=== PATIENT | female | born 1985 | race Hispanic/Latino ===

== ENCOUNTER 2018-02-25 13:50 | Emergency (ER) | payer MEDICAID ==
[2018-02-25 14:15] VITALS: BP 123/73
[2018-02-25] MEDS ORDERED: TORADOL IM ONE (16:27)
--- NOTE | 2018-02-25 18:08 | XRay Report ---
FINAL REPORT PROCEDURE: Chest. TECHNIQUE: PA and lateral views. HISTORY: Fall, injury, chest pain. COMPARISON: No prior studies are available for comparison. FINDINGS: The heart and mediastinum appear normal. The lungs are clear and well expanded. There are no pleural effusions. The soft tissues and regional skeleton are unremarkable. IMPRESSION: Normal study.
--- NOTE | 2018-02-25 18:10 | XRay Report ---
FINAL REPORT PROCEDURE: Left tibia and fibula. TECHNIQUE: AP and lateral views. HISTORY: Fall, injury, leg pain. COMPARISON: None. FINDINGS: The bones appear intact without fracture or dislocation. The joint spaces appear normal. The soft tissues are unremarkable. IMPRESSION: Normal study.
--- NOTE | 2018-02-25 18:11 | XRay Report ---
FINAL REPORT PROCEDURE: Lumbar spine. TECHNIQUE: Three views. HISTORY: Fall, injury, back pain. COMPARISON: No prior studies are available for comparison. FINDINGS: The lumbar vertebrae have normal height and alignment. There are no fractures. There is no spondylolisthesis. There is mild disc space narrowing at L5-S1. The sacrum and sacroiliac joints appear normal. IMPRESSION: No significant abnormality.
--- NOTE | 2018-02-25 18:34 | Emergency Department Report ---
ED Extremity Problem HPI - General Chief complaint: Back Pain/Injury Stated complaint: BACK PAIN Time Seen by Provider: 02/25/18 16:15 Source: patient, EMS Mode of arrival: Wheelchair Limitations: Other - History of Present Illness Initial comments: Patient is a 32-year-old female with past medical history of chronic back pain is presenting status post a fall with scrapes to the right lower extremity. She states her anterior ohara is hurting secondary to a fall. Patient states pain is 10 out of 10 in severity. After making this complaint before was able to leave the room to put in orders for x-ray of the patient also stated that she was having intense back pain. She states this is worse than her normal back pain. She states that she also fell on her back. Patient is asking for oxycodone O which I told patient we were unable to give narcotics unless there was a fracture present. Patient then stated that she is having bilateral rib pain also 10 out of 10 in severity. Severity scale (0 -10): 9 - Related Data Previous Rx's Medication Instructions Recorded Last Taken Type Ketorolac [Toradol] 10 mg PO Q6H PRN #15 tablet 02/25/18 Unknown Rx methOCARBAMOL [Robaxin TAB] 500 mg PO Q6H PRN #15 tablet 02/25/18 Unknown Rx Allergies Allergy/AdvReac Type Severity Reaction Status Date / Time No Known Allergies Allergy Unverified 02/25/18 14:10 ED Review of Systems ROS: Stated complaint: BACK PAIN Other details as noted in HPI Comment: All other systems reviewed and negative ED Past Medical Hx - Past Medical History Previous Medical History?: Yes Additional medical history: fibromyalgia, DJD, Spinal stenosis, Back pain - Surgical History Past Surgical History?: Yes Hx Appendectomy: Yes Additional Surgical History: Left knee, appendectomy - Social History Smoking Status: Current Every Day Smoker Substance Use Type: Prescribed - Medications Home Medications: Home Medications Medication Instructions Recorded Confirmed Last Taken Type Ketorolac [Toradol] 10 mg PO Q6H PRN #15 tablet 02/25/18 Unknown Rx methOCARBAMOL [Robaxin TAB] 500 mg PO Q6H PRN #15 tablet 02/25/18 Unknown Rx ED Physical Exam - General Limitations: Other General appearance: alert, in no apparent distress - Head Head exam: Present: atraumatic, normocephalic - Eye Eye exam: Present: normal appearance - ENT ENT exam: Present: mucous membranes moist - Neck Neck exam: Present: normal inspection - Respiratory Respiratory exam: Present: normal lung sounds bilaterally. Absent: respiratory distress - Cardiovascular Cardiovascular Exam: Present: regular rate, normal rhythm. Absent: systolic murmur, diastolic murmur, rubs, gallop - GI/Abdominal GI/Abdominal exam: Present: soft, normal bowel sounds - Extremities Exam Extremities exam: Present: normal inspection, other (Z small superficial abrasion to the right anterior ohara) - Back Exam Back exam: Present: normal inspection - Neurological Exam Neurological exam: Present: alert, oriented X3 - Psychiatric Psychiatric exam: Present: normal affect, normal mood - Skin Skin exam: Present: warm, dry, intact, normal color. Absent: rash ED Course Vital Signs 02/25/18 14:10 Temperature 98.7 F Pulse Rate 95 H Respiratory 18 Rate Blood Pressure 123/73 O2 Sat by Pulse 97 Oximetry ED Medical Decision Making - Radiology Data X-ray of the right tib-fib was within normal limits. X-ray of the lumbar spine is within normal limits. X-ray of the chest 2 views within normal limits. Critical care attestation.: If time is entered above; I have spent that time in minutes in the direct care of this critically ill patient, excluding procedure time. ED Disposition Clinical Impression: Musculoskeletal pain Disposition: DC-01 TO HOME OR SELFCARE Is pt being admited?: No Does the pt Need Aspirin: No Condition: Stable Instructions: Musculoskeletal Pain (ED) Prescriptions: Ketorolac [Toradol] 10 mg PO Q6H PRN #15 tablet PRN Reason: Pain methOCARBAMOL [Robaxin TAB] 500 mg PO Q6H PRN #15 tablet PRN Reason: pain Referrals: PRIMARY CARE,MD [Primary Care Provider] - 3-5 Days
== END 2018-02-25 19:19 | disposition home or self-care (01) ==
LOC: ED 13:50
DX: M79.1 Myalgia (principal); F17.200 Nicotine dependence, unspecified, uncomplicated; Z90.49 Acquired absence of other specified parts of digestive tract; W19.XXXA Unspecified fall, initial encounter; Y93.89 Activity, other specified; Y99.8 Other external cause status; Y92.89 Other specified places as the place of occurrence of the external cause
CPT/HCPCS: 71046; 72100; 73590; 96372; 99283; J1885

== ENCOUNTER 2018-02-26 17:01 | Emergency (ER) | payer MEDICAID ==
--- NOTE | 2018-02-26 21:27 | Emergency Department Report ---
ED Psych HPI - General Chief Complaint: Psych Stated Complaint: SUICIDAL/MENTAL HEALTH Time Seen by Provider: 02/26/18 21:22 Source: patient, police Mode of arrival: Ambulatory - History of Present Illness Initial Comments: Ms Peguero is a 32 year-old woman with hx of depression, fibromylagia, epilepsy who presents with suicidal ideation. per patient, she wants to cut herself with a knife. She has tried to overdose before and has cut herself before. Was just discharged from psych facility on 02/24 and placed in skilled nursing. She does not like the skilled nursing. She thinks it is a "crack house." She wants to hurt herself because of a recent in [facility] family and her living situation. Did not take any drugs or drink any alcohol today. Did not cut herself, but is thinking about it. Was see in ED yesterday for back pain. Has chronic pain from fibromyalgia, otherwise no other complaints. Wants her PM dose of clonazepam. She reports she takes 2mg TID. MD Complaint: suicidal ideation Associated Psychiatric Symptoms: depression, suicidal ideation Quality: constant Improves With: none Worsens With: none Associated Symptoms: denies other symptoms Treatments Prior to Arrival: none If Self Harm: admits thoughts of, has plan - Related Data Previous Rx's Medication Instructions Recorded Last Taken Type Ketorolac [Toradol] 10 mg PO Q6H PRN #15 tablet 02/25/18 Unknown Rx methOCARBAMOL [Robaxin TAB] 500 mg PO Q6H PRN #15 tablet 02/25/18 Unknown Rx Allergies Allergy/AdvReac Type Severity Reaction Status Date / Time No Known Allergies Allergy Unverified 02/25/18 14:10 ED Review of Systems ROS: Stated complaint: SUICIDAL/MENTAL HEALTH Other details as noted in HPI Comment: All other systems reviewed and negative ED Past Medical Hx - Past Medical History Hx Seizures: Yes Hx Psychiatric Treatment: (Anxiety, PTSD, Depression) Additional medical history: fibromyalgia, DJD, Spinal stenosis, Back pain - Surgical History Hx Appendectomy: Yes Additional Surgical History: Left knee, appendectomy - Social History Smoking Status: Current Every Day Smoker - Medications Home Medications: Home Medications Medication Instructions Recorded Confirmed Last Taken Type Ketorolac [Toradol] 10 mg PO Q6H PRN #15 tablet 02/25/18 Unknown Rx methOCARBAMOL [Robaxin TAB] 500 mg PO Q6H PRN #15 tablet 02/25/18 Unknown Rx ED Physical Exam - General Limitations: No Limitations General appearance: alert, in no apparent distress - Head Head exam: Present: atraumatic, normocephalic - Eye Eye exam: Present: normal appearance, EOMI. Absent: nystagmus - ENT ENT exam: Present: normal exam, mucous membranes moist - Neck Neck exam: Present: normal inspection - Respiratory Respiratory exam: Present: normal lung sounds bilaterally. Absent: respiratory distress, wheezes, rales, rhonchi - Cardiovascular Cardiovascular Exam: Present: regular rate, normal rhythm. Absent: systolic murmur, diastolic murmur, rubs, gallop - GI/Abdominal GI/Abdominal exam: Present: soft. Absent: distended, tenderness - Extremities Exam Extremities exam: Present: normal inspection - Back Exam Back exam: Present: normal inspection - Neurological Exam Neurological exam: Present: alert, oriented X3, normal gait - Psychiatric Psychiatric exam: Present: normal affect, normal mood, suicidal ideation. Absent: homicidal ideation - Skin Skin exam: Present: warm, dry, intact, normal color. Absent: rash ED Course Vital Signs 02/26/18 02/26/18 17:30 21:58 Temperature 99.2 F 98.2 F Pulse Rate 112 H 84 Respiratory 18 17 Rate Blood Pressure 117/71 Blood Pressure 112/61 [Left] O2 Sat by Pulse 100 99 Oximetry ED Medical Decision Making - Lab Data Result diagrams: 02/26/18 21:39 02/26/18 21:39 Lab Results 02/26/18 02/26/18 02/26/18 Range/Units 21:39 21:39 21:39 WBC 9.7 (4.5-11.0) K/mm3 RBC 3.67 (3.65-5.03) M/mm3 Hgb 11.6 (10.1-14.3) gm/dl Hct 34.5 (30.3-42.9) % MCV 94 (79-97) fl MCH 32 (28-32) pg MCHC 34 (30-34) % RDW 13.4 (13.2-15.2) % Plt Count 255 (140-440) K/mm3 Lymph % (Auto) 26.3 (13.4-35.0) % [place] % (Auto) 9.5 H (0.0-7.3) % Eos % (Auto) 1.2 (0.0-4.3) % Baso % (Auto) 0.7 (0.0-1.8) % Lymph # 2.6 (1.2-5.4) K/mm3 [place] # 0.9 H (0.0-0.8) K/mm3 Eos # 0.1 (0.0-0.4) K/mm3 Baso # 0.1 (0.0-0.1) K/mm3 Seg Neutrophils % 62.3 (40.0-70.0) % Seg Neutrophils # 6.1 (1.8-7.7) K/mm3 Sodium 137 (137-145) mmol/L Potassium 3.8 (3.6-5.0) mmol/L Chloride 102.5 (98-107) mmol/L Carbon Dioxide 22 (22-30) mmol/L Anion Gap 16 mmol/L BUN 8 (7-17) mg/dL Creatinine 0.6 L (0.7-1.2) mg/dL Estimated GFR > 60 ml/min BUN/Creatinine Ratio 13 % Glucose 133 H (65-100) mg/dL Calcium 9.1 (8.4-10.2) mg/dL Total Bilirubin 0.20 (0.1-1.2) mg/dL AST 16 (5-40) units/L ALT 16 (7-56) units/L Alkaline Phosphatase 48 (35-129) units/L Total Protein 6.6 (6.3-8.2) g/dL Albumin 4.1 (3.9-5) g/dL Albumin/Globulin Ratio 1.6 % Urine Color (Yellow) Urine Turbidity (Clear) Urine pH (5.0-7.0) Ur Specific [place] (1.003-1.030) Urine Protein (Negative) mg/dL Urine Glucose (UA) (Negative) mg/dL Urine Ketones (Negative) mg/dL Urine Blood (Negative) Urine Nitrite (Negative) Ur Reducing Substances Urine Bilirubin (Negative) Urine Ictotest Urine Urobilinogen (<2.0) mg/dL Ur Leukocyte Esterase (Negative) Urine WBC (Auto) (0.0-6.0) /HPF Urine RBC (Auto) (0.0-6.0) /HPF U Epithel Cells (Auto) (0-13.0) /HPF Urine Bacteria (Auto) (Negative) /HPF Urine Mucus /HPF Urine HCG, Qual (Negative) Salicylates 0.3 L (2.8-20.0) mg/dL Urine Opiates Screen Urine Methadone Screen Acetaminophen (10.0-30.0) ug/mL Ur Barbiturates Screen Ur Phencyclidine Scrn Ur Amphetamines Screen U Benzodiazepines Scrn Urine Cocaine Screen U Marijuana (THC) Screen Drugs of Abuse Note Plasma/Serum Alcohol (0-0.07) % 02/26/18 02/26/18 02/27/18 Range/Units 21:39 21:39 03:30 WBC (4.5-11.0) K/mm3 RBC (3.65-5.03) M/mm3 Hgb (10.1-14.3) gm/dl Hct (30.3-42.9) % MCV (79-97) fl MCH (28-32) pg MCHC (30-34) % RDW (13.2-15.2) % Plt Count (140-440) K/mm3 Lymph % (Auto) (13.4-35.0) % [place] % (Auto) (0.0-7.3) % Eos % (Auto) (0.0-4.3) % Baso % (Auto) (0.0-1.8) % Lymph # (1.2-5.4) K/mm3 [place] # (0.0-0.8) K/mm3 Eos # (0.0-0.4) K/mm3 Baso # (0.0-0.1) K/mm3 Seg Neutrophils % (40.0-70.0) % Seg Neutrophils # (1.8-7.7) K/mm3 Sodium (137-145) mmol/L Potassium (3.6-5.0) mmol/L Chloride (98-107) mmol/L Carbon Dioxide (22-30) mmol/L Anion Gap mmol/L BUN (7-17) mg/dL Creatinine (0.7-1.2) mg/dL Estimated GFR ml/min BUN/Creatinine Ratio % Glucose (65-100) mg/dL Calcium (8.4-10.2) mg/dL Total Bilirubin (0.1-1.2) mg/dL AST (5-40) units/L ALT (7-56) units/L Alkaline Phosphatase (35-129) units/L Total Protein (6.3-8.2) g/dL Albumin (3.9-5) g/dL Albumin/Globulin Ratio % Urine Color Yellow (Yellow) Urine Turbidity Slightly cloudy (Clear) Urine pH 6.0 (5.0-7.0) Ur Specific [place] 1.008 (1.003-1.030) Urine Protein <15 mg/dl (Negative) mg/dL Urine Glucose (UA) Neg (Negative) mg/dL Urine Ketones Neg (Negative) mg/dL Urine Blood Lg (Negative) Urine Nitrite Neg (Negative) Ur Reducing Substances Not Reportable Urine Bilirubin Neg (Negative) Urine Ictotest Not Reportable Urine Urobilinogen < 2.0 (<2.0) mg/dL Ur Leukocyte Esterase Mod (Negative) Urine WBC (Auto) 20.0 H (0.0-6.0) /HPF Urine RBC (Auto) 49.0 (0.0-6.0) /HPF U Epithel Cells (Auto) 2.0 (0-13.0) /HPF Urine Bacteria (Auto) 2+ (Negative) /HPF Urine Mucus Few /HPF Urine HCG, Qual Negative (Negative) Salicylates (2.8-20.0) mg/dL Urine Opiates Screen Urine Methadone Screen Acetaminophen < 5.0 L (10.0-30.0) ug/mL Ur Barbiturates Screen Ur Phencyclidine Scrn Ur Amphetamines Screen U Benzodiazepines Scrn Urine Cocaine Screen U Marijuana (THC) Screen Drugs of Abuse Note Plasma/Serum Alcohol < 0.01 (0-0.07) % 02/27/18 Range/Units 03:30 WBC (4.5-11.0) K/mm3 RBC (3.65-5.03) M/mm3 Hgb (10.1-14.3) gm/dl Hct (30.3-42.9) % MCV (79-97) fl MCH (28-32) pg MCHC (30-34) % RDW (13.2-15.2) % Plt Count (140-440) K/mm3 Lymph % (Auto) (13.4-35.0) % [place] % (Auto) (0.0-7.3) % Eos % (Auto) (0.0-4.3) % Baso % (Auto) (0.0-1.8) % Lymph # (1.2-5.4) K/mm3 [place] # (0.0-0.8) K/mm3 Eos # (0.0-0.4) K/mm3 Baso # (0.0-0.1) K/mm3 Seg Neutrophils % (40.0-70.0) % Seg Neutrophils # (1.8-7.7) K/mm3 Sodium (137-145) mmol/L Potassium (3.6-5.0) mmol/L Chloride (98-107) mmol/L Carbon Dioxide (22-30) mmol/L Anion Gap mmol/L BUN (7-17) mg/dL Creatinine (0.7-1.2) mg/dL Estimated GFR ml/min BUN/Creatinine Ratio % Glucose (65-100) mg/dL Calcium (8.4-10.2) mg/dL Total Bilirubin (0.1-1.2) mg/dL AST (5-40) units/L ALT (7-56) units/L Alkaline Phosphatase (35-129) units/L Total Protein (6.3-8.2) g/dL Albumin (3.9-5) g/dL Albumin/Globulin Ratio % Urine Color (Yellow) Urine Turbidity (Clear) Urine pH (5.0-7.0) Ur Specific [place] (1.003-1.030) Urine Protein (Negative) mg/dL Urine Glucose (UA) (Negative) mg/dL Urine Ketones (Negative) mg/dL Urine Blood (Negative) Urine Nitrite (Negative) Ur Reducing Substances Urine Bilirubin (Negative) Urine Ictotest Urine Urobilinogen (<2.0) mg/dL Ur Leukocyte Esterase (Negative) Urine WBC (Auto) (0.0-6.0) /HPF Urine RBC (Auto) (0.0-6.0) /HPF U Epithel Cells (Auto) (0-13.0) /HPF Urine Bacteria (Auto) (Negative) /HPF Urine Mucus /HPF Urine HCG, Qual (Negative) Salicylates (2.8-20.0) mg/dL Urine Opiates Screen Presumptive negative Urine Methadone Screen Presumptive negative Acetaminophen (10.0-30.0) ug/mL Ur Barbiturates Screen Presumptive negative Ur Phencyclidine Scrn Presumptive negative Ur Amphetamines Screen Presumptive negative U Benzodiazepines Scrn Presumptive positive Urine Cocaine Screen Presumptive negative U Marijuana (THC) Screen Presumptive positive Drugs of Abuse Note Disclamer Plasma/Serum Alcohol (0-0.07) % - Medical Decision Making ms peguero is a 32 year-old woman who presents with suicidal ideation. wants to cut herself. just discharged from inpatient psychiatric stay 2 days ago. does not like where she is living. is depressed about this and her grandmothers . has attempted to harm self in the past. No ingestions. Exam unremarkable. Labs with marijuana and benzo positive. otherwise wnl. Medically cleared. Awaiting assessment and possible placement. 1013 signed and in chart. Critical care attestation.: If time is entered above; I have spent that time in minutes in the direct care of this critically ill patient, excluding procedure time. ED Disposition Clinical Impression: Suicidal ideation Disposition: DC/TX-65 PSY HOSP/PSY UNIT Is pt being admited?: No Condition: Stable Instructions: Suicide Prevention for Adults (ED) Referrals: PRIMARY CAREMD [Primary Care Provider] - 3-5 Days
[2018-02-26 21:56] LABS: Basophils # (Auto) 0.1 K/mm3 (0.0-0.1); Basophils % (Auto) 0.7 % (0.0-1.8); Eosinophils # (Auto) 0.1 K/mm3 (0.0-0.4); Eosinophils % (Auto) 1.2 % (0.0-4.3); Hematocrit 34.5 % (30.3-42.9); Hemoglobin 11.6 gm/dl (10.1-14.3); Lymphocytes # (Auto) 2.6 K/mm3 (1.2-5.4); Lymphocytes % (Auto) 26.3 % (13.4-35.0); Mean Corpuscular HGB Conc 34 % (30-34); Mean Corpuscular Hemoglobin 32 pg (28-32); Mean Corpuscular Volume 94 fl (79-97); Monocytes # (Auto) 0.9 K/mm3 (0.0-0.8); Monocytes % (Auto) 9.5 % (0.0-7.3); Platelet Count 255 K/mm3 (140-440); Red Blood Count 3.67 M/mm3 (3.65-5.03); Red Cell Distribution Width 13.4 % (13.2-15.2)
[2018-02-26 22:17] LABS: Alanine Aminotransferase 16 units/L (7-56); Albumin 4.1 g/dL (3.9-5); BUN/Creatinine Ratio 13; Blood Urea Nitrogen 8 mg/dL (7-17); Calcium 9.1 mg/dL (8.4-10.2); Hemolysis Index 8
[2018-02-27] MEDS ORDERED: MOTRIN ONE (03:57)
[2018-02-27 04:09] LABS: Amphetamine Screen,Urine PRESUMPTIVE NEGATIVE; Cocaine Screen,Urine PRESUMPTIVE NEGATIVE; Methadone Screen,Urine PRESUMPTIVE NEGATIVE; Opiate Screen,Urine PRESUMPTIVE NEGATIVE
[2018-02-27 04:21] LABS: Benzodiazepines Screen,Urine PRESUMPTIVE POSITIVE; Cannabinoid Screen,Urine PRESUMPTIVE POSITIVE
[2018-02-27 04:22] LABS: HCG Qualitative,Urine Negative (Negative)
[2018-02-27 04:24] LABS: Bacteria,Urine 2+ /HPF (Negative); Bilirubin,Urine NEG (Negative); Blood,Urine LG (Negative); Color,Urine Yellow (Yellow); Mucus,Urine FEW /HPF; Protein,Urine <15 mg/dL mg/dL (Negative); Urobilinogen,Urine < 2.0 mg/dL (<2.0)
[2018-02-27] MEDS: ABILIFY PO SCH (12:57)
[2018-02-27] MEDS: KEPPRA PO SCH (18:28)
[2018-02-27] MEDS ORDERED: MOTRIN PO ONE (20:57)
[2018-02-28 08:28] LABS: Alanine Aminotransferase 14 units/L (7-56); Lipase 28 units/L (13-60)
[2018-02-28] MEDS: MOTRIN PO PRN ×2 (09:00→17:00)
[2018-02-28] MEDS: ABILIFY PO SCH (09:37)
[2018-02-28] MEDS: MACROBID PO SCH ×2 (15:45→22:10)
[2018-02-28] MEDS: KEPPRA PO SCH (17:59)
--- NOTE | 2018-02-28 19:47 | Consultation ---
History of Present Illness - Reason for Consult Consult date: 02/28/18 Reason for consult: Mental Health [place] Requesting physician: BRITTANI SAAB - Chief Complaint Chief complaint: "I am not doing well" - History of Present Psychiatric Illness 32 year-old white woman with hx of depression, fibromylagia, epilepsy who presents with SI's. Today the patient is calm and cooperative during the assessment. She stated that she does not like her current alf. She stated that she feel depressed and wanted to kill herself when she returned to her group once being discharged from the ER 02/25/2018. She stated she would like to be placed at another group when discharged. She would not confirm or deny a suicide plan when asked. She acknowledged a previous suicide attempt in the past. She admitted to smoking marijuana "sometimes." She denies HI's and AVH 's. She denies erratic sleep and a poor appetite. She denies alcohol consumption (etoh). Medications and Allergies Allergies Allergy/AdvReac Type Severity Reaction Status Date / Time No Known Allergies Allergy Unverified 02/25/18 14:10 Home Medications Medication Instructions Recorded Confirmed Last Taken Type Ketorolac [Toradol] 10 mg PO Q6H PRN #15 tablet 02/25/18 Unknown Rx methOCARBAMOL [Robaxin TAB] 500 mg PO Q6H PRN #15 tablet 02/25/18 Unknown Rx Active Meds: Active Medications Aripiprazole (Abilify) 20 mg PO DAILY [facility] Last Admin: 02/28/18 09:37 Dose: 20 mg Clonazepam (Klonopin) 1 mg PO Q8HR PRN PRN Reason: Anxiety Last Admin: 02/28/18 16:30 Dose: 1 mg Divalproex Sodium (Depakote Dr) 500 mg PO BID [facility] Last Admin: 02/28/18 09:37 Dose: 500 mg Ibuprofen (Motrin) 800 mg PO TID PRN PRN Reason: Pain , Severe (7-10) Last Admin: 02/28/18 17:00 Dose: 800 mg Levetiracetam (Keppra) 500 mg PO DAILY@1800 [facility] Last Admin: 02/28/18 17:59 Dose: 500 mg Nitrofurantoin Macrocrystals (Macrobid) 100 mg PO BID [facility] Stop: 03/04/18 22:01 Last Admin: 02/28/18 15:45 Dose: 100 mg Past psychiatric history - Past Medical History Past Medical History: other (Fibromyalgia, Chronic Back Pain) Past Surgical History: appendectomy - past Psychiatric treatment and history psychiatric treatment history: Multiple inpatient psy services. Denies a fam psy hx. - Social History Social history: other (Reside at a alf) Mental Status Exam - Vital signs Last Vital Signs Temp 98.5 F 02/28/18 08:27 Pulse 82 02/28/18 08:27 Resp 18 02/28/18 08:27 BP 100/55 02/28/18 08:27 Pulse Ox 96 02/28/18 08:27 - Exam Narrative exam: MSE: Appearance: calm, cooperative Behavior: regular eye contact Speech: regular rate and tone Mood: "depressed" Affect: congruent to mood Thought Process: circumstantial Thought Content: denies HI's and AVH's Motor Activity: ambulatory Cognition: A/O x 3 Insight: fair Judgment: variable Results Result Diagrams: 02/26/18 21:39 02/26/18 21:39 All other labs normal. Assessment and Plan Assessment and plan: Impression: Unspecified Mood DO. Cannabis Use DO. Today the patient is calm and cooperative during the assessment. The patient endorses SI's. Urine WBC's 20.0. DDx: Bipolar DO Recommendation/Plan: Continue 1013 with placement to inpatient psy services. Continue home medications (Depakote, Abilify, and Klonopin). Discussed possible metabolic side effects of Abilify with the patient. Informed the staff of the patient's elevated WBC's in her urine.
[2018-03-01] MEDS: MACROBID PO SCH ×2 (10:27→22:26)
[2018-03-01] MEDS: ABILIFY PO SCH (10:27)
[2018-03-01] MEDS: MOTRIN PO PRN (13:47)
--- NOTE | 2018-03-01 14:55 | Progress Note ---
Subjective - Reason for Consult Consult date: 03/01/18 Reason for consult: Psychiatry Follow-up - Chief Complaint Chief complaint: "I was never suicidal" 32 year-old white woman with hx of depression, fibromylagia, epilepsy who presents with SI's. Today the patient is calm and cooperative during the assessment. She stated that she was never suicidal on admission. She stated that she wanted assistance with placement, so she mentioned being suicidal when she returned back to the ER on 02/26/2018. She stated that her biggest issue is her current residence. She stated that her PCP manage her psy meds. She stated that she would like a referral for a psychiatrist. She denies SI/HI's and AVH' s. She denies any side effects of her medications. Mental Status Exam - Vital signs Last Vital Signs Temp 98.7 F 02/28/18 20:00 Pulse 66 02/28/18 20:00 Resp 18 03/01/18 09:15 BP 110/67 02/28/18 20:00 Pulse Ox 98 03/01/18 09:15 - Exam Narrative exam: MSE: Appearance: calm, cooperative Behavior: regular eye contact Speech: regular rate and tone Mood: "better" Affect: congruent to mood Thought Process: linear Thought Content: denies SI/HI's and AVH's Motor Activity: ambulatory Cognition: A/O x 3 Insight: appropriate Judgment: appropriate Assessment and Plan Impression: Unspecified Mood DO. Cannabis Use DO. Today the patient is calm and cooperative during the assessment. The patient is no threat to self. DDx: Bipolar DO Recommendation/Plan: Rescind 1013. Continue home medications Depakote 500 mg PO BID, Abilify 20 mg PO Daily, and and Klonopin 1 mg PO Q8hrs PRN. Discussed possible metabolic side effects of Abilify with the patient. The patient can follow-up with her PCP or [facility] for outpatient psy services. The patient is aware when to have her blood levels check reference Depakote. Case Mgmt involvement, the patient will need assistance with placement.
[2018-03-01] MEDS: KEPPRA PO SCH (19:08)
[2018-03-02] MEDS: MACROBID PO SCH ×2 (09:59→22:06)
[2018-03-02] MEDS: ABILIFY PO SCH ×2 (09:59)
[2018-03-02] MEDS: MOTRIN PO PRN ×2 (14:01→22:06)
--- NOTE | 2018-03-02 14:48 | Progress Note ---
Subjective - Reason for Consult Reason for consult: psych consult - Chief Complaint Chief complaint: "I was never suicidal" 32 year-old white woman with hx of depression, fibromylagia, epilepsy who presents with SI's. Today the patient is very emotional. She notes that her dad is in a [facility] now. Her mom is in [facility]p. She states that is having difficulty dealing with this and is suicidal today secondary to learning about these issues. No plan or intent at this time though. She notes that she is having +VH regarding cutting her arm. She is noting that she needs some stability in order to obtain guardianship of her children from [facility]. Mental Status Exam - Vital signs Last Vital Signs Temp 97.6 F 03/02/18 14:10 Pulse 86 03/02/18 14:10 Resp 16 03/02/18 14:11 BP 107/60 03/02/18 14:10 Pulse Ox 97 03/02/18 14:11 - Exam Orientation: time, place, person Affect: depressed Mood: hopeless Thought content: other (+SI no plan or intent) Thought Process: Intact Perceptions: visual Speech: normal rate and pattern Concentration: distractible Motor activity: normal Level of consciousness: alert Memory: Intact Interaction: cooperative Assessment and Plan Impression: Unspecified Mood DO. Cannabis Use DO. DDx: Bipolar DO Recommendation/Plan: -Continue 1013 with placement to inpatient psy services. -Continue medications as directed
[2018-03-02] MEDS: KEPPRA PO SCH (18:22)
[2018-03-03] MEDS: ABILIFY PO SCH (10:22)
[2018-03-03] MEDS: MACROBID PO SCH (10:22)
--- NOTE | 2018-03-03 11:16 | Progress Note ---
Subjective - Reason for Consult Consult date: 03/03/18 Reason for consult: Psychiatry Follow-up - Chief Complaint Chief complaint: "I am depressed" 32 year-old white woman with hx of depression, fibromylagia, epilepsy who presents with SI's. Today the patient calm, but depressed during the assessment. She endorses SI's. She didn't want to discuss her stressors when asked. She stated hearing voices, but cannot make out what they are saying. She wouldn't confirm or deny a suicidal plan when asked. She denies HI's and VH's. She denies any side effects of her medications. Mental Status Exam - Vital signs Last Vital Signs Temp 99.0 F 03/02/18 22:00 Pulse 77 03/02/18 22:00 Resp 18 03/02/18 22:00 BP 114/67 03/02/18 22:00 Pulse Ox 98 03/02/18 22:00 - Exam Narrative exam: MSE: Appearance: calm, cooperative Behavior: regular eye contact Speech: regular rate and tone Mood: "depressed" Affect: congruent to mood Thought Process: circumstantial Thought Content: denies HI's and VH's Motor Activity: ambulatory Cognition: A/O x 3 Insight: variable Judgment: variable Assessment and Plan Impression: Unspecified Mood DO. Cannabis Use DO. Today the patient is calm and cooperative during the assessment. The patient is no threat to self. DDx: Bipolar DO Recommendation/Plan: Continue 1013 with placement to [facility] today. Continue home medications Depakote 500 mg PO BID, Abilify 20 mg PO Daily, and and Klonopin 1 mg PO Q8hrs PRN. Discussed possible metabolic side effects of Abilify with the patient.
[2018-03-03 12:37] VITALS: BP 113/71
== END 2018-03-03 12:40 ==
LOC: EEVIPCON 17:01 → ED 17:01
DX: F32.9 Major depressive disorder, single episode, unspecified (principal); F41.9 Anxiety disorder, unspecified; F17.200 Nicotine dependence, unspecified, uncomplicated
CPT/HCPCS: 36415; 80053; 80164; 80307; 81001; 81025; 82150; 83690; 84075; 84450; 84460; 85025; 99285; G0480; 80320

== ENCOUNTER 2018-03-28 11:41 | Emergency (ER) | payer MEDICAID ==
[2018-03-28 12:58] VITALS: BP 122/81
[2018-03-28] MEDS ORDERED: MOTRIN PO ONE (14:41)
--- NOTE | 2018-03-28 14:45 | Emergency Department Report ---
Abscess Boil HPI - HPI Chief Complaint: Skin/Abscess/Foreign Body Stated Complaint: STAFF INFECTION Time Seen by Provider: 03/28/18 13:59 Duration: 2 Days Severity: Mild History: Yes Pain, No Fever, No Purulent Drainage, No Numbness, No Foreign Body , No Previous History, No Insect Bite HPI: This is a 32-year-old female nontoxic, well nourished in appearance, no acute signs of distress presents to the ED with c/o of intermittent acute on chronic boils. Patient stated that passed 2 days she developed small little boils throughout the body. Patient denies any fever, chills, headache, nausea, vomiting, chest pain, shortness of breathe, numbness, or tingling. Patient denies any allergies or PMH. Home Medications: Previous Rx's Medication Instructions Recorded Last Taken Type Ketorolac [Toradol] 10 mg PO Q6H PRN #15 tablet 02/25/18 Unknown Rx methOCARBAMOL [Robaxin TAB] 500 mg PO Q6H PRN #15 tablet 02/25/18 Unknown Rx Acetaminophen/Codeine [Tylenol 1 tab PO Q6H PRN #12 tab 03/28/18 Unknown Rx /Codeine # 3 tab] Clindamycin [Clindamycin CAP] 300 mg PO Q8H #21 cap 03/28/18 Unknown Rx Ibuprofen [Motrin] 600 mg PO Q8H PRN #30 tablet 03/28/18 Unknown Rx Allergies/Adverse Reactions: Allergies Allergy/AdvReac Type Severity Reaction Status Date / Time No Known Allergies Allergy Verified 03/28/18 12:03 ED Review of Systems ROS: Stated complaint: STAFF INFECTION Other details as noted in HPI Constitutional: denies: chills, fever Eyes: denies: eye pain, eye discharge, vision change ENT: denies: ear pain, throat pain Respiratory: denies: cough, shortness of breath, wheezing Cardiovascular: denies: chest pain, palpitations Endocrine: no symptoms reported Gastrointestinal: denies: abdominal pain, nausea, diarrhea Genitourinary: denies: urgency, dysuria, discharge Musculoskeletal: denies: back pain, joint swelling, arthralgia Skin: denies: rash, lesions Neurological: denies: headache, weakness, paresthesias Psychiatric: denies: anxiety, depression Hematological/Lymphatic: denies: easy bleeding, easy bruising ED Past Medical Hx - Past Medical History Previous Medical History?: Yes Hx Seizures: Yes Hx Psychiatric Treatment: (Anxiety, PTSD, Depression) Additional medical history: fibromyalgia, DJD, Spinal stenosis, Back pain - Surgical History Past Surgical History?: Yes Hx Appendectomy: Yes Additional Surgical History: Left knee, appendectomy, tonsilectomy - Social History Smoking Status: Current Every Day Smoker Substance Use Type: None - Medications Home Medications: Home Medications Medication Instructions Recorded Confirmed Last Taken Type Ketorolac [Toradol] 10 mg PO Q6H PRN #15 tablet 02/25/18 02/28/18 Unknown Rx methOCARBAMOL [Robaxin TAB] 500 mg PO Q6H PRN #15 tablet 02/25/18 02/28/18 Unknown Rx Acetaminophen/Codeine [Tylenol 1 tab PO Q6H PRN #12 tab 03/28/18 Unknown Rx /Codeine # 3 tab] Clindamycin [Clindamycin CAP] 300 mg PO Q8H #21 cap 03/28/18 Unknown Rx Ibuprofen [Motrin] 600 mg PO Q8H PRN #30 tablet 03/28/18 Unknown Rx ED Abscess Boil Physical Exam - Exam General: Vital signs noted. No distress. Alert and acting appropriately. GENERAL: The patient is a well-developed, well-nourished in no apparent distress. Patient is alert and acting appropriately for age. Alert and oriented 3, no apparent distress, normal gait, atraumatic. HEENT: Head is normocephalic and atraumatic. PERRL, Extraocular muscles are intact. Pupils are equal, round, and reactive to light and accommodation. Nares appeared normal. Mouth is well hydrated and without lesions. Mucous membranes are moist. Posterior pharynx clear of any exudate or lesions. Mouth is well hydrated and without lesions. Tonsils not erythematous or swollen. Uvula midline. Tongue elevated. Mucous members are moist. Posterior pharynx clear, no exudate or lesions. Patent airways. NECK: Supple. No carotid bruits. No lymphadenopathy or thyromegaly.nontender. No meningitic signs are noted. LUNGS: Clear to auscultation. Non labor breathing. No intercostal retractions. Symmetrical with respiration, no wheezing, no rales, or crackles. HEART: Regular rate and rhythm without murmur, rubs or gallops. No reproducible. S1, S2 present, regular rate and rhythm without murmur, no rubs, no gallops. ABDOMEN: Soft, nontender, and nondistended. Positive bowel sounds. No hepatosplenomegaly was noted. No guarding or rebound tenderness, negative epigastric bruit. Negative psoas sign, negative pearson sign, negative McBurneys sign EXTREMITIES: Without any cyanosis, clubbing, rash, lesions or edema. Peripheral pulses intact. Capillary refill less than 2 seconds. Full range of motion bilaterally. NEUROLOGIC: Cranial nerves II through XII are grossly intact. Alert and oriented x 3. Normal gait. Symmetrical strength and sensation. Reflexes 2+ throughout. Cerebellar testing normal. GCS score of 15. PSYCHIATRIC: Normal affect with no suicidal or homicidal ideations. Front/Back of Body, Lg (Color): 1 - 1 cm circular cellultitis 2 - 0.5 cm circular cellultitis 3 - 1 cm circular cellultitis Exam: Yes Surrounding Cellulites/Erythema, Yes Normal Neurologic Exam, Yes Normal Circulation, No Tenderness, No Fluctuance, No Lymphangitis, No Crepitation, No Heart Murmur ED Course Vital Signs 03/28/18 11:53 Temperature 99.2 F Pulse Rate 95 H Respiratory 20 Rate Blood Pressure 122/81 O2 Sat by Pulse 96 Oximetry - Reevaluation(s) Reevaluation #1: 03/28/18 14:48 Patient is speaking in full sentences with no signs of distress noted. Critical care attestation.: If time is entered above; I have spent that time in minutes in the direct care of this critically ill patient, excluding procedure time. ED Medical Decision Making - Medical Decision Making This is a 32-year-old female that presents with cellulitis. Patient is stable and was examined by me. Upon examination there is no induration or fluctuance. No swelling. No signs of any abscess. Patient will be discharged with Clinda. The area has been outlined wih permanent marker and patient was instructed to observe symptoms of increasing redness or swelling and to return to emergency room as this needs to be further evaluated. Patient was instructed to Follow-up with a primary care doctor in 3-5 days or if symptoms worsen and continue return to emergency room as soon as possible. At time of discharge, the patient does not seem toxic or ill in appearance. No acute signs of distress noted. Patient agrees to discharge treatment plan of care. No further questions noted by the patient. ED Disposition Clinical Impression: Cellulitis Qualifiers: Site of cellulitis: unspecified site Qualified Code(s): L03.90 - Cellulitis, unspecified Disposition: - TO HOME OR SELFCARE Is pt being admited?: No Does the pt Need Aspirin: No Condition: Stable Instructions: Cellulitis (ED), Acetaminophen/Codeine (By mouth) Additional Instructions: Follow-up with a primary care doctor in 3-5 days or if symptoms worsen and continue return to emergency room as soon as possible. Do not operate any machinery while taking Tylenol with codeine as this may cause drowsiness. Prescriptions: Acetaminophen/Codeine [Tylenol /Codeine # 3 tab] 1 tab PO Q6H PRN #12 tab PRN Reason: Pain , Severe (7-10) Clindamycin [Clindamycin CAP] 300 mg PO Q8H #21 cap Ibuprofen [Motrin] 600 mg PO Q8H PRN #30 tablet PRN Reason: Pain Referrals: PRIMARY CAREMD [Primary Care Provider] - 3-5 Days AMAN CHAU MD [Staff Physician] - 3-5 Days [facility] [Outside] - 3-5 Days [facility] [Outside] - 3-5 Days Forms: Work/School Release Form(ED)
== END 2018-03-28 14:59 | disposition home or self-care (01) ==
LOC: ED 11:41
DX: L03.317 Cellulitis of buttock (principal); L03.113 Cellulitis of right upper limb; F17.200 Nicotine dependence, unspecified, uncomplicated
CPT/HCPCS: 99282

== ENCOUNTER 2018-04-21 12:48 | Emergency (ER) | payer MEDICAID ==
[2018-04-21 13:27] VITALS: BP 118/67
--- NOTE | 2018-04-21 13:56 | Emergency Department Report ---
ED Psych HPI - General Chief Complaint: Psych Stated Complaint: ANIXETY Time Seen by Provider: 04/21/18 13:47 Source: patient Mode of arrival: Ambulatory - History of Present Illness Initial Comments: Patient is 32 years old female with history of unspecified mood disorder. Patient presented to the ER complaining of depression and anxiety. Patient denied any suicidal ideation or any thoughts suicidal plan. She also denied any homicidal ideation. No visual or auditory hallucination. Patient stated that he been taking Klonopin for her chronic back but is not helping. MD Complaint: feels depressed - Related Data Previous Rx's Medication Instructions Recorded Last Taken Type Ketorolac [Toradol] 10 mg PO Q6H PRN #15 tablet 02/25/18 Unknown Rx methOCARBAMOL [Robaxin TAB] 500 mg PO Q6H PRN #15 tablet 02/25/18 Unknown Rx Acetaminophen/Codeine [Tylenol 1 tab PO Q6H PRN #12 tab 03/28/18 Unknown Rx /Codeine # 3 tab] Clindamycin [Clindamycin CAP] 300 mg PO Q8H #21 cap 03/28/18 Unknown Rx Ibuprofen [Motrin] 600 mg PO Q8H PRN #30 tablet 03/28/18 Unknown Rx LORazepam [Ativan] 1 mg PO QHS #3 tab 04/21/18 Unknown Rx Allergies Allergy/AdvReac Type Severity Reaction Status Date / Time ketorolac [From Toradol] Allergy Rash Verified 04/21/18 13:22 morphine Allergy Unknown Verified 04/21/18 13:22 ED Review of Systems ROS: Stated complaint: ANIXETY Other details as noted in HPI Comment: All other systems reviewed and negative Constitutional: denies: chills, fever Respiratory: denies: cough, orthopnea, shortness of breath, SOB with exertion, wheezing Cardiovascular: denies: chest pain, palpitations Gastrointestinal: denies: abdominal pain, nausea, vomiting Neurological: denies: headache, weakness, numbness, paresthesias, confusion, abnormal gait Psychiatric: anxiety, depression. denies: auditory hallucinations, visual hallucinations, homicidal thoughts, suicidal thoughts ED Past Medical Hx - Past Medical History Previous Medical History?: Yes Hx Arthritis: Yes Hx Seizures: Yes Hx Psychiatric Treatment: (Anxiety, PTSD, Depression) Additional medical history: fibromyalgia, DJD, Spinal stenosis, Back pain - Surgical History Past Surgical History?: Yes Hx Appendectomy: Yes Additional Surgical History: Left knee, appendectomy, tonsilectomy - Social History Smoking Status: Current Every Day Smoker Substance Use Type: None - Medications Home Medications: Home Medications Medication Instructions Recorded Confirmed Last Taken Type Ketorolac [Toradol] 10 mg PO Q6H PRN #15 tablet 02/25/18 02/28/18 Unknown Rx methOCARBAMOL [Robaxin TAB] 500 mg PO Q6H PRN #15 tablet 02/25/18 02/28/18 Unknown Rx Acetaminophen/Codeine [Tylenol 1 tab PO Q6H PRN #12 tab 03/28/18 Unknown Rx /Codeine # 3 tab] Clindamycin [Clindamycin CAP] 300 mg PO Q8H #21 cap 03/28/18 Unknown Rx Ibuprofen [Motrin] 600 mg PO Q8H PRN #30 tablet 03/28/18 Unknown Rx LORazepam [Ativan] 1 mg PO QHS #3 tab 04/21/18 Unknown Rx ED Physical Exam - General Limitations: No Limitations General appearance: alert, in no apparent distress, anxious - Head Head exam: Present: atraumatic, normocephalic, normal inspection - Eye Eye exam: Present: normal appearance, PERRL - ENT ENT exam: Present: normal exam, normal orophraynx, mucous membranes moist - Neck Neck exam: Present: normal inspection, full ROM. Absent: tenderness, meningismus, lymphadenopathy, thyromegaly - Respiratory Respiratory exam: Present: normal lung sounds bilaterally. Absent: respiratory distress, wheezes, rales, rhonchi, stridor, chest wall tenderness, accessory muscle use, decreased breath sounds, prolonged expiratory - Cardiovascular Cardiovascular Exam: Present: regular rate, normal rhythm, normal heart sounds - GI/Abdominal GI/Abdominal exam: Present: soft, normal bowel sounds. Absent: distended, tenderness, guarding, rebound, rigid, diminished bowel sounds, organomegaly, mass, bruit, pulsatile mass, hernia - Extremities Exam Extremities exam: Present: normal inspection, full ROM, normal capillary refill - Back Exam Back exam: Present: normal inspection, full ROM. Absent: tenderness, CVA tenderness (R), CVA tenderness (L), muscle spasm, paraspinal tenderness, vertebral tenderness, rash noted - Neurological Exam Neurological exam: Present: alert, oriented X3, CN II-XII intact, normal gait, reflexes normal - Skin Skin exam: Present: warm, intact, normal color ED Course Vital Signs 04/21/18 13:22 Temperature 98.3 F Pulse Rate 84 Respiratory 18 Rate Blood Pressure 118/67 O2 Sat by Pulse 96 Oximetry ED Medical Decision Making - Lab Data Result diagrams: 04/21/18 13:40 04/21/18 13:40 - Medical Decision Making Patient is still denying any suicidal or homicidal ideation. Patient was seen today by our psychiatric team and advised patient can be discharged home to follow up with her outpatient psychiatric. Critical care attestation.: If time is entered above; I have spent that time in minutes in the direct care of this critically ill patient, excluding procedure time. ED Disposition Clinical Impression: Depression, Chronic anxiety Disposition: DC-01 TO HOME OR SELFCARE Is pt being admited?: No Condition: Stable Instructions: Depression (ED), Anxiety (ED) Prescriptions: LORazepam [Ativan] 1 mg PO QHS #3 tab Referrals: PRIMARY CARE, [Primary Care Provider] - 3-5 Days
[2018-04-21 14:05] LABS: Basophils # (Auto) 0.1 K/mm3 (0.0-0.1); Basophils % (Auto) 1.3 % (0.0-1.8); Eosinophils # (Auto) 0.1 K/mm3 (0.0-0.4); Eosinophils % (Auto) 0.6 % (0.0-4.3); Hematocrit 37.6 % (30.3-42.9); Hemoglobin 12.6 gm/dl (10.1-14.3); Lymphocytes # (Auto) 2.1 K/mm3 (1.2-5.4); Mean Corpuscular HGB Conc 34 % (30-34); Mean Corpuscular Hemoglobin 31 pg (28-32); Mean Corpuscular Volume 92 fl (79-97); Monocytes # (Auto) 0.7 K/mm3 (0.0-0.8); Monocytes % (Auto) 7.4 % (0.0-7.3); Platelet Count 231 K/mm3 (140-440); Red Blood Count 4.11 M/mm3 (3.65-5.03); Red Cell Distribution Width 14.6 % (13.2-15.2)
[2018-04-21 14:21] LABS: BUN/Creatinine Ratio 17; Blood Urea Nitrogen 10 mg/dL (7-17); Calcium 8.8 mg/dL (8.4-10.2); Hemolysis Index 10
[2018-04-21 16:24] LABS: Amphetamine Screen,Urine PRESUMPTIVE NEGATIVE; Cannabinoid Screen,Urine PRESUMPTIVE NEGATIVE; Cocaine Screen,Urine PRESUMPTIVE NEGATIVE; Methadone Screen,Urine PRESUMPTIVE NEGATIVE; Opiate Screen,Urine PRESUMPTIVE NEGATIVE
[2018-04-21 16:35] LABS: Benzodiazepines Screen,Urine PRESUMPTIVE POSITIVE
[2018-04-21 17:06] LABS: Bilirubin,Urine Negative (Negative); Blood,Urine Negative (Negative); Color,Urine Yellow (Yellow); Protein,Urine <15 mg/dL mg/dL (Negative)
[2018-04-21 17:07] LABS: Mucus,Urine 3+ /HPF; Urobilinogen,Urine < 2.0 mg/dL (<2.0)
== END 2018-04-21 15:30 | disposition home or self-care (01) ==
LOC: ED 12:48
DX: F32.9 Major depressive disorder, single episode, unspecified (principal); F41.9 Anxiety disorder, unspecified; M19.90 Unspecified osteoarthritis, unspecified site; F43.10 Post-traumatic stress disorder, unspecified; M79.7 Fibromyalgia; F17.200 Nicotine dependence, unspecified, uncomplicated; Z90.49 Acquired absence of other specified parts of digestive tract; Z88.5 Allergy status to narcotic agent; Z88.8 Allergy status to other drugs, medicaments and biological substances
CPT/HCPCS: 36415; 80048; 80307; 81001; 84703; 85025; 99284; G0480; 80320

== ENCOUNTER 2019-01-27 14:10 | Emergency (ER) | payer MEDICAID ==
--- NOTE | 2019-01-27 14:36 | Emergency Department Report ---
ED Psych HPI - General Chief Complaint: Psych Stated Complaint: MH EVAL Time Seen by Provider: 01/27/19 14:26 Source: patient, EMS Mode of arrival: Ambulatory - History of Present Illness Initial Comments: Patient is a 33-year-old female who presents emergency room with complaints of suicidal ideation with attempt. Patient states she has noted take her life by cutting her wrists. Patient states she has cuts on her left wrist. Patient states she been having suicidal thoughts for a long time but has not acted on them until today when she started having problems with her boyfriend. Patient denies chest pain shortness of breath. Patient denies nausea vomiting. Patient denies any physical complaints. Patient is complaining of depression and anxiety. Patient denies homicidal ideations and hallucinations.. MD Complaint: suicidal ideation, feels depressed -: Sudden Associated Psychiatric Symptoms: depression, suicidal ideation, racing thoughts History of same: Yes Quality: constant Improves With: medication, therapy Worsens With: other Context: not taking psychiatric Associated Symptoms: nausea. denies: confusion, headache, shortness of breath, vomiting, syncope, insomnia Treatments Prior to Arrival: placed on mental he If Self Harm: admits thoughts of, has plan, has acted on plan - Related Data Previous Rx's Medication Instructions Recorded Last Taken Type Ketorolac [Toradol] 10 mg PO Q6H PRN #15 tablet 02/25/18 Unknown Rx methOCARBAMOL [Robaxin TAB] 500 mg PO Q6H PRN #15 tablet 02/25/18 Unknown Rx Acetaminophen/Codeine [Tylenol 1 tab PO Q6H PRN #12 tab 03/28/18 Unknown Rx /Codeine # 3 tab] Clindamycin [Clindamycin CAP] 300 mg PO Q8H #21 cap 03/28/18 Unknown Rx Ibuprofen [Motrin] 600 mg PO Q8H PRN #30 tablet 03/28/18 Unknown Rx LORazepam [Ativan] 1 mg PO QHS #3 tab 04/21/18 Unknown Rx Allergies Allergy/AdvReac Type Severity Reaction Status Date / Time ketorolac [From Toradol] Allergy Rash Verified 04/21/18 13:22 morphine Allergy Unknown Verified 04/21/18 13:22 ED Review of Systems ROS: Stated complaint: MH EVAL Other details as noted in HPI Constitutional: denies: chills, fever Eyes: denies: eye pain, eye discharge, vision change ENT: denies: ear pain, throat pain Respiratory: denies: cough, shortness of breath, wheezing Cardiovascular: denies: chest pain, palpitations Endocrine: no symptoms reported Gastrointestinal: denies: abdominal pain, nausea, diarrhea Genitourinary: denies: urgency, dysuria, discharge Musculoskeletal: denies: back pain, joint swelling, arthralgia Skin: denies: rash, lesions Neurological: denies: headache, weakness, paresthesias Psychiatric: anxiety, depression, suicidal thoughts Hematological/Lymphatic: denies: easy bleeding, easy bruising ED Past Medical Hx - Past Medical History Previous Medical History?: Yes Hx Arthritis: Yes Hx Seizures: Yes Hx Psychiatric Treatment: (Anxiety, PTSD, Depression) Additional medical history: fibromyalgia, DJD, Spinal stenosis, Back pain - Surgical History Past Surgical History?: Yes Hx Appendectomy: Yes Additional Surgical History: Left knee, appendectomy, tonsilectomy - Family History Family history: no significant - Social History Smoking Status: Current Every Day Smoker Substance Use Type: None - Medications Home Medications: Home Medications Medication Instructions Recorded Confirmed Last Taken Type Ketorolac [Toradol] 10 mg PO Q6H PRN #15 tablet 02/25/18 02/28/18 Unknown Rx methOCARBAMOL [Robaxin TAB] 500 mg PO Q6H PRN #15 tablet 02/25/18 02/28/18 Unknown Rx Acetaminophen/Codeine [Tylenol 1 tab PO Q6H PRN #12 tab 03/28/18 Unknown Rx /Codeine # 3 tab] Clindamycin [Clindamycin CAP] 300 mg PO Q8H #21 cap 03/28/18 Unknown Rx Ibuprofen [Motrin] 600 mg PO Q8H PRN #30 tablet 03/28/18 Unknown Rx LORazepam [Ativan] 1 mg PO QHS #3 tab 04/21/18 Unknown Rx ED Physical Exam - General Limitations: No Limitations General appearance: alert, in no apparent distress - Head Head exam: Present: atraumatic, normocephalic - Eye Eye exam: Present: normal appearance - ENT ENT exam: Present: mucous membranes moist - Neck Neck exam: Present: normal inspection - Respiratory Respiratory exam: Present: normal lung sounds bilaterally. Absent: respiratory distress - Cardiovascular Cardiovascular Exam: Present: regular rate, normal rhythm. Absent: systolic murmur, diastolic murmur, rubs, gallop - GI/Abdominal GI/Abdominal exam: Present: soft, normal bowel sounds. Absent: distended, tenderness, guarding - Rectal Rectal exam: Present: deferred - Extremities Exam Extremities exam: Present: normal inspection - Back Exam Back exam: Present: normal inspection - Neurological Exam Neurological exam: Present: alert, oriented X3 - Psychiatric Psychiatric exam: Present: depressed, anxious, suicidal ideation - Skin Skin exam: Present: warm, dry, abrasion (abrasions on left wrist). Absent: rash ED Course Vital Signs 01/27/19 14:28 Temperature 99.6 F Pulse Rate 95 H Respiratory 18 Rate Blood Pressure 109/76 [Left] O2 Sat by Pulse 98 Oximetry - Reevaluation(s) Reevaluation #1: Patient placed on a 1013. Mental health evaluation ordered. 01/27/19 14:35 Labs done. Patient is medically cleared. Discussed all results with patient. Patient will remain on 1013 in the ER until accepted into appropriate psychiatric facility. Patient agrees to plan of care. 01/27/19 15:55 ED Medical Decision Making - Lab Data Result diagrams: 01/27/19 14:38 01/27/19 14:38 - Medical Decision Making pt is a 33-year-old female that presents emergency room for suicidal ideation without attempt. Patient placed on 1013. Patient is medically clear. Patient will require psychiatric placement. - Differential Diagnosis set ideations with an attempt and a plan. Depression. Anxiety Critical care attestation.: If time is entered above; I have spent that time in minutes in the direct care of this critically ill patient, excluding procedure time. ED Disposition Clinical Impression: Suicidal ideations, Suicide attempt, Self-cutting of wrist Disposition: DC/TX-65 PSY HOSP/PSY UNIT Is pt being admited?: No Does the pt Need Aspirin: No Condition: Stable Additional Instructions: Patient is medically cleared Time of Disposition: 15:57
[2019-01-27 15:07] LABS: Basophils # (Auto) 0.1 K/mm3 (0.0-0.1); Basophils % (Auto) 0.8 % (0.0-1.8); Hematocrit 41.3 % (30.3-42.9); Hemoglobin 13.5 gm/dl (10.1-14.3); Lymphocytes # (Auto) 1.8 K/mm3 (1.2-5.4); Lymphocytes % (Auto) 12.2 % (13.4-35.0); Mean Corpuscular HGB Conc 33 % (30-34); Mean Corpuscular Volume 90 fl (79-97); Monocytes # (Auto) 1.3 K/mm3 (0.0-0.8); Monocytes % (Auto) 8.9 % (0.0-7.3); Platelet Count 250 K/mm3 (140-440); Red Blood Count 4.62 M/mm3 (3.65-5.03); Red Cell Distribution Width 15.2 % (13.2-15.2)
[2019-01-27 15:25] LABS: Alanine Aminotransferase 23 units/L (7-56); Albumin 4.4 g/dL (3.9-5); BUN/Creatinine Ratio 7; Blood Urea Nitrogen 5 mg/dL (7-17); Calcium 9.6 mg/dL (8.4-10.2); Hemolysis Index 6
[2019-01-27 15:32] LABS: HCG Qualitative,Urine Negative (Negative)
[2019-01-27 15:34] LABS: Bacteria,Urine 1+ /HPF (Negative); Bilirubin,Urine NEG (Negative); Blood,Urine NEG (Negative); Color,Urine Yellow (Yellow); Hyaline Casts,Urine 8 /LPF; Mucus,Urine FEW /HPF; Urobilinogen,Urine < 2.0 mg/dL (<2.0)
[2019-01-27 15:59] LABS: Cocaine Screen,Urine PRESUMPTIVE NEGATIVE; Methadone Screen,Urine PRESUMPTIVE NEGATIVE; Opiate Screen,Urine PRESUMPTIVE NEGATIVE
[2019-01-27 16:16] LABS: Amphetamine Screen,Urine PRESUMPTIVE POSITIVE; Benzodiazepines Screen,Urine PRESUMPTIVE POSITIVE; Cannabinoid Screen,Urine PRESUMPTIVE POSITIVE
[2019-01-27 19:50] VITALS: BP 118/82
== END 2019-01-28 03:35 ==
LOC: ED 14:10
DX: S60.812A Abrasion of left wrist, initial encounter (principal); M19.90 Unspecified osteoarthritis, unspecified site; F41.9 Anxiety disorder, unspecified; F32.9 Major depressive disorder, single episode, unspecified; F17.200 Nicotine dependence, unspecified, uncomplicated; Z90.49 Acquired absence of other specified parts of digestive tract; Z88.6 Allergy status to analgesic agent; X78.8XXA Intentional self-harm by other sharp object, initial encounter; Y93.89 Activity, other specified; Y92.89 Other specified places as the place of occurrence of the external cause; Y99.8 Other external cause status
CPT/HCPCS: 36415; 80053; 80307; 81001; 81025; 85025; 99285; G0480; 80320